=== PATIENT | female | born 1975 | race American Indian/Alaskan Native ===

== ENCOUNTER 2022-10-06 14:44 | Emergency (ER) | payer MEDICARE, MEDICAID ==
[2022-10-06] MEDS ORDERED: Sodium Chloride 0.9% 1,000 ML IV ONE (15:23)
[2022-10-06] MEDS ORDERED: Ketorolac 30 MG/ML SDV IVPUSH ONE (15:24)
[2022-10-06] MEDS ORDERED: Sodium Chloride 0.9% 10 ML Syringe FLUSH PRN (15:24)
[2022-10-06 15:38] LABS: BASOPHILS PERCENT AUTO 0.5 % (0.0-1.0); EOSINOPHILS PERCENT AUTO 4.2 % (1.0-3.0); HEMATOCRIT 42.1 % (37.0-47.0); HEMOGLOBIN 13.8 g/dL (12.0-16.0); LYMPHOCYTES PERCENT AUTO 29.7 % (20.5-50.1); MEAN CORPUSCULAR HEMOGLOBIN 29.7 pg (27.0-34.0); MEAN CORPUSCULAR HGB CONC 32.8 g/dL (33.0-35.0); MEAN CORPUSCULAR VOLUME 90.5 fL (80-100); MONOCYTES PERCENT AUTO 7.3 % (2-8); NEUTROPHILS PERCENT AUTO 58.3 % (42.2-75.2); PLATELET COUNT,PLT 299 10^3/uL (150-450); RED BLOOD CELL COUNT 4.65 10^6/uL (4.2-5.4); WHITE BLOOD CELL COUNT,WBC 9.7 10^3/uL (5.0-10.0)
[2022-10-06 15:41] LABS: APPEARANCE,URINE CLEAR (CLEAR); BILIRUBIN,URINE NEGATIVE (NEGATIVE); COLOR,URINE YELLOW (YELLOW); GLUCOSE,URINE NEGATIVE (NEGATIVE); KETONES,URINE NEGATIVE (NEGATIVE); LEUKOCYTE ESTERASE,URINE NEGATIVE (NEGATIVE); NITRITE,URINE NEGATIVE (NEGATIVE); OCCULT BLOOD,URINE NEGATIVE (NEGATIVE); PROTEIN,URINE NEGATIVE (NEGATIVE); UROBILINOGEN,URINE 0.2 mg/dL (0.2-1.0)
[2022-10-06 16:17] LABS: LACTIC ACID 0.7 mmol/L (0.4-2.0)
[2022-10-06 16:24] LABS: ALBUMIN 3.6 g/dL (3.4-5.0); ANION GAP 10.8 mEq/L (7-13); BILIRUBIN TOTAL 0.3 mg/dL (0.2-1.0); BUN/CREATININE RATIO 14.7 (No establ ref range); CALCIUM 8.8 mg/dL (8.5-10.1); CREATININE 0.68 mg/dL (0.55-1.02); EST CRCL DRUG DOSING (CG) 100.53 mL/min; POTASSIUM,K 3.8 mmol/L (3.5-5.1); PROTEIN TOTAL,TP 7.3 g/dL (6.4-8.2)
[2022-10-06] MEDS ORDERED: Levofloxacin/Dextrose 5%-Water 500 MG in Premix Bag 1 BAG IV ONE (17:11)
[2022-10-06] MEDS ORDERED: Dexamethasone 4 MG/ML SDV IVPUSH ONE (17:23)
== END 2022-10-06 17:50 | disposition home or self-care (01) ==
LOC: DL.ED 14:44
DX: R10.31 Right lower quadrant pain (principal); M51.16 Intervertebral disc disorders with radiculopathy, lumbar region
CPT/HCPCS: 36415; 74176; 80053; 81003; 83605; 85025; 96361; 96374; 96375; 99284; 99284-25; J1100; J1885; J3490; J7030

== ENCOUNTER 2022-12-31 21:22 | Emergency (ER) | payer MEDICARE, MEDICAID ==
[2022-12-31] MEDS ORDERED: Acetaminophen 500 MG Tab PO ONE (23:44)
[2023-01-01] MEDS ORDERED: Ketorolac 30 MG/ML SDV IM ONE (01:21)
== END 2023-01-01 01:51 | disposition home or self-care (01) ==
LOC: DL.ED 21:22
DX: S80.02XA Contusion of left knee, initial encounter (principal); S40.012A Contusion of left shoulder, initial encounter; M17.12 Unilateral primary osteoarthritis, left knee; W01.0XXA Fall on same level from slipping, tripping and stumbling without subsequent striking against object, initial encounter
CPT/HCPCS: 73030; 73562; 96372; 99283; A9270; J1885